=== PATIENT | male | born 1960 | race Caucasian/White ===

== ENCOUNTER 2016-11-07 01:41 | Inpatient (IN) | payer MEDICARE, OTHER ==
--- NOTE | ~2016-11-07 | DS ---
Unit #: [id number] #: [id number] Patient: MANA PATEL [id number] [address] [address] [id number] I MR#: [id number] NAME: MANA PATEL. ROOM: 55 Age: 56 Sex: M Admission Date: 11/07/2016 : 1960 Discharge Date: 11/08/2016 Attending Physician: Ming Maloney M.D. Primary Care Physician: Hector Weiss M.D. DISCHARGE SUMMARY ADMISSION DIAGNOSIS Atrial fibrillation with rapid ventricular rate. PAST MEDICAL HISTORY 1. Paroxysmal atrial fibrillation on anticoagulation. 2. History of polycystic kidney disease with endstage renal disease, status post renal transplant in 2010. 3. Diabetes mellitus. 4. Hypertension. 5. Dyslipidemia. DISCHARGE DIAGNOSES 1. Paroxysmal atrial fibrillation on anticoagulation. 2. History of polycystic kidney disease with endstage renal disease, status post renal transplant in 2010. 3. Diabetes mellitus. 4. Hypertension. 5. Dyslipidemia. HOSPITAL COURSE Mr. Patel is a 56-year-old white male who was admitted with atrial fibrillation with rapid ventricular rate. In the emergency room he was started on IV Cardizem. He converted to normal sinus rhythm. His amiodarone was increased. Of note, he was subtherapeutic on his INR despite stating that he took his Coumadin daily. The patient was changed from Coumadin to Xarelto at discharge and he was discharged home on an amiodarone taper. DISCHARGE MEDICATIONS 1. Prednisone 5 mg daily. 2. Amiodarone 400 mg q.8 h. for 3 days, then 400 mg q.12 h. for 3 days, then 400 mg daily for 3 days, then 200 mg daily. 3. Xarelto 20 mg daily. 4. Gabapentin 100 mg b.i.d. 5. Norvasc 5 mg daily. 6. Metoprolol 50 mg b.i.d. 7. Losartan 50 mg daily. 8. Lantus 52 units subcutaneous at bedtime. 9. Sliding scale Lispro insulin. 10. Zantac 150 mg daily. 11. Mycophenolic acid 720 mg t.i.d. 12. Tacrolimus 1 mg t.i.d. FOLLOWUP Unit #: [id number] #: [id number] Patient: MANA PATEL He will follow up with Dr. Maloney in two to three weeks. He was given the number of [phone] to call for an appointment. Dictated by... Mady Leonard A.P.R.N. for Ming Maloney M.D. SHANIT/gz TD: 11/09/2016 08:32 JOB #: [id number] DISCHARGE SUMMARY Page 1 of 1 X X DISCHARGE SUMMARY
--- NOTE | ~2016-11-07 | CR72 ---
[facility] A Service of [facility] RADIOLOGY TEXT RESULTS PATIENT: MANA BARRY LOCATION: [place] [address] : [birth year] UNIT #: [id number] AGE: [address]: Ming Maloney MD SEX: M ORDER DR: [id number] [facility] [address] [facility]. [place], [place] [address] [id number] MR#: [id number] Acc #: [id number] NAME: MANA BARRY : 1960 SEX: M STUDY DATE/TIME: 11/07/2016 1:36 UNIT: [place] ROOM: STUDY DESCRIPTION: CR Chest Single View Portable Attending Physician: Virginia Roth Pa-C Ordering Physician: Ed Doc Catherine Davenport Primary Care Physician: Hector Weiss M.D. MEDICAL IMAGING REPORT This report is preliminary unless electronic signature is present EXAM Chest x-ray, 11/07/2016 HISTORY 56-year-old male in the ED complaining of 1-day history of chest pain and shortness of air. Atrial fibrillation is reported. TECHNIQUE AP portable chest x-ray. FINDINGS The examination is negative. Heart size and pulmonary vascularity are normal. The lungs appear clear. No visible pulmonary infiltrate or pleural effusion. No change since 08/01/2016. IMPRESSION Negative chest. Dictated by... Itz Mckinney M.D. THIS IS AN ELECTRONICALLY VERIFIED REPORT Itz Mckinney M.D. at 11/07/2016 5:59 AM GILLIAN/harry TD: 11/07/2016 02:17 JOB #: [id number] MEDICAL IMAGING REPORT Page 1 of 1 COPY
--- NOTE | ~2016-11-07 | HP ---
Unit #: [id number] #: [id number] Patient: MANA PATEL [id number] [id number] [place], [place] [address] [id number] I MR#: [id number] NAME: MANA PATEL. ROOM: 559 Age: 56 Sex: M Admission Date: 11/07/2016 : 1960 Attending Physician: Ming Maloney M.D. Primary Care Physician: Hector Weiss M.D. HISTORY AND PHYSICAL CHIEF COMPLAINT Palpitations, chest discomfort. HISTORY OF PRESENT ILLNESS Mr. Patel is a 56-year-old white male who follows with Dr. Ming Maloney in the office. He has a history of atrial fibrillation on anticoagulation as well as a history of polycystic kidney disease with endstage renal disease. He received a transplant in 2010. 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 He started feeling that his heart rate was increasing. He has it linked with his phone and his heart rate was increasing from 140 and up and he presented to the emergency room. He states that in the emergency room his heart rate was all the way up to the 170s and it causes some shortness of air and chest discomfort when his heart is that fast. He also states that by the time he got up to his room he felt better and his heart rate was back to normal. PAST MEDICAL HISTORY 1. Paroxysmal atrial fibrillation. 2. History of endstage renal disease with shunt and polycystic kidney disease. 3. Hypertension. 4. Dyslipidemia. 5. Diabetes mellitus. PAST SURGICAL HISTORY 1. Kidney transplant. 2. Fistula. 3. Bilateral kidney removal. SOCIAL HISTORY No tobacco. No alcohol. No illicit drug use. No [id number] herbal remedies. FAMILY HISTORY Father with heart attack and atrial fibrillation in his 50s. ALLERGIES No known drug allergies. HOME MEDICATIONS 1. Prednisone 5 mg daily. 2. Neurontin 100 mg b.i.d. 3. Tacrolimus 1 mg t.i.d. 4. Mycophenolic acid 720 mg t.i.d. Unit #: [id number] #: [id number] Patient: MANA PATEL 5. Losartan 50 mg daily. 6. Lantus 52 units subcutaneous at bedtime. 7. Humalog sliding scale insulin. 8. Lopressor 50 mg b.i.d. 9. Amiodarone 100 mg daily. 10. Coumadin 5 mg daily. 11. Zantac 150 mg daily. 12. Norvasc 5 mg daily. REVIEW OF SYSTEMS No fever. No chills. No shortness of air except when heart was racing. No thyroid disease. Positive diabetes. No auditory or visual disturbances. No melena. No hematochezia. No bright red bleeding per rectum. No hematuria. No seizure disorder. No history of CVA, TIA. PHYSICAL EXAMINATION GENERAL: Well-developed, well-nourished white male in no acute distress. VITALS: Temperature 97.6, pulse 60, respiratory rate 16, blood pressure 111/67. HEENT: Normocephalic, atraumatic. No xanthelasma. Pupils equal, round and reactive to light. Extraocular movements intact. NECK: Supple. No jugular venous distension. No elevated CVP. No thyromegaly. LUNGS: Clear to auscultation bilaterally anteriorly and posteriorly. HEART: S1 and S2. No S3 or S4. 2/6 systolic murmur. PMI nondisplaced. No lift. ABDOMEN: Positive bowel sounds. Soft, nontender and nondistended. EXTREMITIES: No clubbing, cyanosis or edema. Two plus pulses bilaterally. NEUROLOGIC: Awake, alert and oriented times three. Speech clear and appropriate. No facial drooping. Moving all extremities spontaneously with equal strength. SKIN: No rash. SPINE: No scoliosis. DIAGNOSTIC STUDIES IMAGING: Chest x-ray is negative. LABORATORY: Chemistry, sodium 136, potassium 3.4, chloride 104, CO2 22, BUN 18, creatinine 1.2, glucose 217, calcium 9.2, magnesium 1.6, total protein 7.4, AST 18, ALT 27, alkaline phosphatase 19, troponin 0.04. PT 11.4, INR 1.1, PTT 27.4. Emergency room remqx-sq-obpe troponin less than 0.05. Hemoglobin 16.3, hematocrit 49.7, white blood cell count 8.8, platelets 199. CARDIOVASCULAR: History of nuclear Lexiscan stress test in July 2015 which was negative for ischemia and ejection fraction of 61%. Twelve lead EKG presenting showed atrial fibrillation with rapid ventricular rate. Ventricular rate 173. Repeat EKG this a.m. at 07:46 shows a normal sinus rhythm, ventricular rate 61, no acute ST-T changes. ASSESSMENT 1. Status post atrial fibrillation with rapid ventricular rate with known paroxysmal atrial fibrillation, now normal sinus rhythm on Cardizem at 5 mg an hour. 2. Suboptimal INR. The patient is on Coumadin and states that he is taking it as prescribed. Unit #: [id number] #: [id number] Patient: MANA PATEL 3. History of endstage renal disease with kidney transplant with normal creatinine. 4. Diabetes mellitus. 5. Dyslipidemia. We will increase his amiodarone. We will put him on full-dose Lovenox, resume his home medications, check a two-dimensional echocardiogram and Dr. Maloney to follow for any further recommendations. 6. BMP, PT/INR in the a.m., full-dose Lovenox, two-dimensional echocardiogram. Dictated by Kika Ca/chin TD: 11/07/2016 11:33 JOB #: [id number] HISTORY AND PHYSICAL Page 1 of 1 X X HISTORY AND PHYSICAL
--- NOTE | ~2016-11-07 | EKG ---
PATIENT: MANA BARRY UNIT #: [id number] Ventricular Rate: 173 BPM Atrial Rate: 182 BPM QRS Duration: 84 ms Q-T Interval: 272 ms QTC Calculation(Bezet): 461 ms Calculated R Williamson: 83 degrees Calculated T Williamson: -5 degrees Diagnosis Line: Atrial fibrillation with rapid ventricular Diagnosis Line: response Diagnosis Line: ST and T wave abnormality, consider inferior Diagnosis Line: ischemia Diagnosis Line: Abnormal ECG Diagnosis Line: No previous ECGs available Diagnosis Line: Confirmed by NOEL GAUTAM MD ([id number]) on 11/07/2016 Diagnosis Line: 10:38:33 PM INTERPRETING MD: LOTUS MARIE
--- NOTE | ~2016-11-07 | EKG ---
PATIENT: MANA BARRY UNIT #: [id number] Ventricular Rate: 61 BPM Atrial Rate: 61 BPM P-R Interval: 150 ms QRS Duration: 92 ms Q-T Interval: 418 ms QTC Calculation(Bezet): 420 ms P Goodman: 50 degrees Calculated R Goodman: 52 degrees Calculated T Goodman: 36 degrees Diagnosis Line: Sinus rhythm with Premature supraventricular Diagnosis Line: complexes Diagnosis Line: Otherwise normal ECG Diagnosis Line: When compared with ECG of 07-NOV-2016 00:54, Diagnosis Line: (unconfirmed) Diagnosis Line: Sinus rhythm has replaced Atrial fibrillation Diagnosis Line: Vent. rate has decreased BY 112 BPM Diagnosis Line: ST no longer depressed in Inferior leads Diagnosis Line: ST no longer depressed in Anterolateral leads Diagnosis Line: T wave inversion no longer evident in Inferior Diagnosis Line: leads Diagnosis Line: Confirmed by NOEL GAUTAM MD ([id number]) on 11/07/2016 Diagnosis Line: 10:42:44 PM INTERPRETING MD: LOTUS MARIE
[2016-11-07 01:29] LABS: POC - CKMB 1.1 ng/mL (0.0-7.9); POC - TROPONIN <0.05 ng/mL (<=0.05)
[2016-11-07 01:36] LABS: BASOPHIL# 0.1 X10e3 (0-0.3); BASOPHIL% 0.7 % (0-2.5); DIFF IND NO; EOSINOPHIL% 0.6 % (0.0-7.0); HEMATOCRIT 49.7 % (38.0-50.0); HEMOGLOBIN 16.3 gm/dL (13.0-16.0); LYMPHOCYTE# 2.6 X10e3 (1.0-3.5); LYMPHOCYTE% 29.8 % (17.0-45.0); MEAN CELL VOLUME 86.8 FL (83-96); MEAN CORPUSCULAR HEMOGLOBIN 28.5 PG (28-34); MEAN CORPUSCULAR HGB CONC 32.8 g/dL (30-36); MEAN PLATELET VOLUME 7.8 FL (6.5-11.5); MONOCYTE# 0.7 X10e3 (0-1.0); MONOCYTE% 8.4 % (3.0-12.0); NEUTROPHIL# 5.3 X10e3 (1.5-7.1); NEUTROPHIL% 60.5 % (40-75); PLATELET COUNT 199 X10e3 (140-420); RED BLOOD COUNT 5.73 X10e (3.90-5.60); RED CELL DISTRIBUTION WIDTH 14.2 % (11.0-15.5); WHITE BLOOD COUNT 8.8 X10e3 (4.0-10.5)
[~2016-11-07 01:41] MED LIST: AMIODARONE HCL100 MG PO; AMLODIPINE BESYL5 MG PO; COUMADIN5 MG PO; FLEXERIL10 MG PO; HUMALOG100 UNIT/1; LANTUS100 UNITS/ SUBQ; LOPRESSOR PO; LOSARTAN POTASS50 MG PO; METOPROLOL-HCT1 EAC1 PO; MYCOPHENOLIC A360 MG PO; NEURONTIN100 MG PO; PREDNISONE5 M1 PO; RANITIDINE HCL150 M1 PO; TACROLIMUS1 M1 PO
[2016-11-07 02:00] LABS: ALBUMIN SERUM 4.4 g/dL (3.5-5.0); BILIRUBIN, DIRECT 0.3 mg/dL (0.0-0.2); BILIRUBIN,INDIRECT 1.5 mg/dL (0.0-0.9); BILIRUBIN,TOTAL 1.8 mg/dL (0.2-2.0); CALCIUM SERUM 9.2 mg/dL (8.4-10.2); CREATININE SERUM 1.2 mg/dL (0.6-1.4); GLOM FILT RATE Estimated 67.2 mL/min (>60); MAGNESIUM 1.6 mg/dL (1.6-3.0); POTASSIUM 3.4 mmol/L (3.5-5.1); PROTEIN TOTAL SERUM 7.4 g/dL (6.0-8.3)
[2016-11-07 02:24] LABS: INR 1.1; PROTHROMBIN TIME (PATIENT) 11.4 SECONDS (9.6-11.5)
[2016-11-07 08:21] LABS: %MB 2.4 % (0.0-4.0); MB 3.4 ng/ml
[2016-11-07 17:13] LABS: %MB 3.3 % (0.0-4.0); MB 3.3 ng/ml
[2016-11-08 06:52] LABS: INR 1.1
[2016-11-08 07:27] LABS: BUN/CREATININE RATIO 18.18; CALCIUM SERUM 8.9 mg/dL (8.4-10.2); CREATININE SERUM 1.1 mg/dL (0.6-1.4); GLOM FILT RATE Estimated 74.7 mL/min (>60)
[2016-11-08] MEDS ORDERED: XARELTO20 MG PO (10:34)
[2016-11-08] MEDS ORDERED: AMIODARONE PO ×2 (10:35→10:38)
== END 2016-11-08 12:16 | disposition home or self-care (01) | DRG 309 ==
LOC: CED 01:41 → CEDOF 02:15 → C5B 02:53
PROVIDERS: Physician Assistant
DX: I48.0 Paroxysmal atrial fibrillation (principal); Z94.0 Kidney transplant status; I10 Essential (primary) hypertension; Z79.01 Long term (current) use of anticoagulants; E11.9 Type 2 diabetes mellitus without complications; Z79.4 Long term (current) use of insulin; E78.5 Hyperlipidemia, unspecified; Z82.49 Family history of ischemic heart disease and other diseases of the circulatory system
CPT/HCPCS: 71010; 80048; 80076; 82550; 82553; 82947; 83735; 84443; 84484; 85025; 85610; 85730; 93005; 93306; 96374; 99291; J1650; J1815; J7507; J7518